=== PATIENT | female | born 1980 | race African-American/Black ===

== ENCOUNTER 2022-07-21 20:44 | Emergency (ER) | payer SELFPAY ==
[~2022-07-21] VITALS: Ht 170.2 cm; Wt 91.0 kg
[2022-07-21 22:20] LABS: BASOPHILS % 0.5 % (0.0-2.0); HEMATOCRIT. 41.2 % (36.0-48.0); HEMOGLOBIN. 13.9 g/dL (12.0-16.0); LYMPHOCYTES % 31.1 % (20.0-50.0); MEAN CORPUSCULAR HEMOGLOBIN 29.3 pg (28.0-32.0); MEAN CORPUSCULAR VOLUME 86.5 fL (81.0-99.0); MEAN PLATELET VOLUME 8.5 fl (7.4-10.4); MONOCYTES % 9.4 % (2.0-8.0); PLATELET 221 x1000/uL (130-400); RED BLOOD CELL COUNT 4.76 mill/uL (4.2-5.4); RED CELL DISTRIBUTION WIDTH 14.2 % (11.6-14.6)
[2022-07-21 22:25] LABS: CHLORIDE 101 mEq/L (98-107)
[2022-07-21 22:36] LABS: ETHANOL BLOOD < 10 mg/dL
[2022-07-21 23:39] VITALS: BP 139/92
== END 2022-07-21 23:37 | disposition home or self-care (01) ==
LOC: ER 20:44
DX: R07.89 Other chest pain (principal)
CPT/HCPCS: 36415; 71045; 80053; 80320; 83880; 84484; 85025; 93005; 99285; G0480